=== PATIENT | female | born 1985 | race Caucasian/White ===

== ENCOUNTER 2018-03-08 17:06 | Emergency (ER) | payer OTHER ==
[~2018-03-08] VITALS: Ht 172.7 cm; Wt 145.2 kg
[2018-03-08] MEDS ORDERED: PANT20 (17:47)
[2018-03-08] MEDS ORDERED: INDO25 (17:48)
[2018-03-08] MEDS ORDERED: DULO30 (17:48)
[2018-03-08] MEDS ORDERED: METCAR500 (17:48)
[2018-03-08] MEDS ORDERED: ALBU90OI6 (17:48)
[2018-03-08] MEDS ORDERED: ONDA4ODT (18:48)
[2018-03-08] MEDS ORDERED: Robaxin500 MG PO (19:27)
== END 2018-03-08 19:41 | disposition home or self-care (01) ==
LOC: ER 17:06
DX: R51 Headache (principal); M54.2 Cervicalgia; M25.512 Pain in left shoulder; M25.511 Pain in right shoulder; Z91.09 Other allergy status, other than to drugs and biological substances; Z88.8 Allergy status to other drugs, medicaments and biological substances; Z79.899 Other long term (current) drug therapy
CPT/HCPCS: 64405; 96372; 99283; J1885